=== PATIENT | male | born 1945 | race African-American/Black ===

== ENCOUNTER 2016-08-14 17:00 | Emergency (ER) | payer MEDICARE, MEDICAID ==
[~2016-08-14] VITALS: Ht 182.9 cm; Wt 90.0 kg
[~2016-08-14 17:00] MED LIST: METF500T4 PO; NIAC500T2 PO; RIVA20TA PO
[2016-08-14] MEDS ORDERED: SODIUM CHLORIDE 0.9% 500 ML IV ONE (17:20)
[2016-08-14] MEDS ORDERED: ONDANSETRON HCL 4MG/2ML VIAL IV ONE (17:30)
[2016-08-14 18:11] LABS: HEMATOCRIT 47.2 % (42.0-52.0); HEMOGLOBIN 15.8 g/dL (14.0-18.0); MEAN CORPUSCULAR HEMOGLOBIN 28.7 pg (28.0-32.0); MEAN CORPUSCULAR HGB CONC 33.5 g/dL (31.0-37.0); MEAN CORPUSCULAR VOLUME 85.8 fL (80.0-94.0); PLATELET 248 x1000/uL (130-400); RED CELL DISTRIBUTION WIDTH 16.1 % (11.6-14.6); WHITE BLOOD COUNT 8.5 x1000/uL (4.5-11.0)
[2016-08-14 18:24] LABS: TROPONIN I 0.03 ng/mL (0.00-0.04)
[2016-08-14 20:30] VITALS: BP 110/65
[2016-08-14] MEDS ORDERED: ONDANSETRON 4MG ODT PO ONE (21:30)
== END 2016-08-14 21:40 | disposition home or self-care (01) ==
LOC: ER 17:02
DX: E86.0 Dehydration (principal); I11.0 Hypertensive heart disease with heart failure; I50.9 Heart failure, unspecified; J44.9 Chronic obstructive pulmonary disease, unspecified; E11.9 Type 2 diabetes mellitus without complications; Z87.891 Personal history of nicotine dependence; Z79.899 Other long term (current) drug therapy; E86.1 Hypovolemia
CPT/HCPCS: 36415; 80048; 84484; 85027; 96361; 96374; 99285; J2405; J7030; Q0162

== ENCOUNTER 2018-07-05 13:31 | Inpatient (IN) | payer MEDICARE, MEDICAID ==
[~2018-07-05] VITALS: Ht 183.1 cm; Wt 88.0 kg
[2018-07-05 08:00] VITALS: BP 137/80
[~2018-07-05 13:31] MED LIST changes: +DILT240C92 PO; +HYDR12.529 PO; +METF-414 PO; -METF500T4 PO
[2018-07-05] MEDS ORDERED: IPRATROPIUM/ALBUTEROL 0.5-3(2.5)MG/3ML NEB HHN PRN (14:45)
[2018-07-05] MEDS ORDERED: DEXTROSE 50% WATER 50ML SYRINGE IV PRN (14:45)
[2018-07-05] MEDS ORDERED: TAMSULOSIN HCL 0.4MG SR CAPSULE PO SCH (15:15)
[2018-07-05 15:30] VITALS: BP 137/80
[2018-07-05 15:56] VITALS: BP 137/80
[2018-07-05] MEDS ORDERED: METHYLPREDNISOLONE SOD SUCC 125 MG/2 ML VIAL IV NR (17:00)
[2018-07-05] MEDS: IPRATROPIUM/ALBUTEROL 0.5-3(2.5)MG/3ML NEB HHN SCH ×2 (17:00→20:02)
[2018-07-05] MEDS: DILTIAZEM HCL 180MG CAPSULE CD 24HR PO SCH (17:17)
[2018-07-05] MEDS: TAMSULOSIN HCL 0.4MG SR CAPSULE PO SCH (17:18)
[2018-07-05] MEDS: RIVAROXABAN 20 MG TABLET PO SCH (17:18)
[2018-07-05] MEDS: INSULIN LISPRO 100 UNITS/ML SUBCUT SCH ×2 (17:25→21:08)
[2018-07-05] MEDS: BLOOD SUGAR DIAGNOSTIC STRIP TEST SCH ×2 (17:25→21:09)
[2018-07-05 17:35] LABS: BASOPHILS % 0.5 % (0.0-2.0); EOSINOPHILS % 2.1 % (0.0-5.0); HEMATOCRIT. 40.3 % (42.0-52.0); HEMOGLOBIN. 13.4 g/dL (14.0-18.0); LYMPHOCYTES % 13.7 % (20.0-50.0); MEAN CORPUSCULAR HEMOGLOBIN 29.5 pg (28.0-32.0); MEAN CORPUSCULAR VOLUME 88.6 fL (80.0-94.0); MEAN PLATELET VOLUME 9.1 fl (7.4-10.4); MONOCYTES % 10.5 % (2.0-8.0); NEUTROPHILS % 73.2 % (40.0-76.0); PLATELET 196 x1000/uL (130-400); RED BLOOD CELL COUNT 4.56 mill/uL (4.7-6.1); RED CELL DISTRIBUTION WIDTH 14.6 % (11.6-14.6)
[2018-07-05 17:48] LABS: CHLORIDE 108 mEq/L (98-107)
[2018-07-05 17:59] LABS: CREATINE KINASE 119 IU/L (39-308)
[2018-07-05] MEDS ORDERED: DILTIAZEM HCL 60MG TABLET PO SCH (18:00)
[2018-07-05 18:03] LABS: CREATINE KINASE MB FRACTION 4.2 ng/mL (0.5-3.6)
[2018-07-05 18:42] LABS: BG BASE EXCESS 1.2 mmol/L (-2.0-2.0); BG CARBOXYHEMOGLOBIN 0.3 % (0.5-1.5); BG DEOXYHEMOGLOBIN 1.8 % (0.0-5.0); BG FRACTION INSPIRED OXYGEN 28; BG HCO3 ACT 25.3 mmol/L (22.0-26.0); BG METHEMOGLOBIN 0.1 % (0.0-1.5); BG OXYGEN SATURATION 98.2 % (92.0-98.5); BG OXYHEMOGLOBIN 97.8 % (94.0-97.0); BG PCO2 38.4 mmHg (35.0-45.0); BG PH 7.437 (7.350-7.450); BG PO2 112.4 mmHg (75.0-100.0); BG SAMPLE SITE LEFT RADIAL; BG TOTAL HEMOGLOBIN 13.7 g/dL (12.0-18.0); BG VENT MODE NASAL CANNULA
[2018-07-05] MEDS ORDERED: TAMS-11 PO (18:48)
[2018-07-05] MEDS ORDERED: ZOLP10TA2 MT (18:48)
[2018-07-05] MEDS ORDERED: ACETAMINOPHEN 325MG TABLET PO PRN (19:00)
[2018-07-05] MEDS ORDERED: MAGNESIUM/ALUMINUM HYDROXIDE/SIMETHICONE 30ML UDC PO PRN (19:00)
[2018-07-05] MEDS ORDERED: ONDANSETRON HCL 4MG/2ML INJ IV PRN (19:00)
[2018-07-05] MEDS ORDERED: DOCUSATE SODIUM 100MG CAPSULE PO PRN (19:00)
[2018-07-05] MEDS ORDERED: HYDROCODONE/ACETAMINOPHEN 5/325MG TABLET PO PRN (19:00)
[2018-07-05] MEDS ORDERED: CLONIDINE 0.1MG TABLET PO PRN (19:00)
[2018-07-05 20:00] VITALS: BP 137/90
[2018-07-05] MEDS: ZOLPIDEM TARTRATE 5MG TABLET PO PRN (21:09)
[2018-07-05] MEDS: METHYLPREDNISOLONE SOD SUCC 125 MG/2 ML VIAL IV SCH (21:13)
[2018-07-05] MEDS: GUAIFENESIN 200MG/10ML SUGAR FREE UDC PO PRN (23:59)
[2018-07-06] VITALS: BP 139/70
[2018-07-06] MEDS: IPRATROPIUM/ALBUTEROL 0.5-3(2.5)MG/3ML NEB HHN SCH ×6 (00:21→20:05)
[2018-07-06 04:06] VITALS: BP 119/77
[2018-07-06 06:18] LABS: HEMATOCRIT. 39.3 % (42.0-52.0); HEMOGLOBIN. 13.3 g/dL (14.0-18.0); MEAN CORPUSCULAR HEMOGLOBIN 29.6 pg (28.0-32.0); MEAN CORPUSCULAR VOLUME 87.2 fL (80.0-94.0); MEAN PLATELET VOLUME 9.8 fl (7.4-10.4); PLATELET 204 x1000/uL (130-400); RED CELL DISTRIBUTION WIDTH 14.6 % (11.6-14.6)
[2018-07-06 06:23] LABS: CHLORIDE 106 mEq/L (98-107)
[2018-07-06 06:34] LABS: CREATINE KINASE 89 IU/L (39-308)
[2018-07-06 06:38] LABS: CREATINE KINASE MB FRACTION 3.6 ng/mL (0.5-3.6)
[2018-07-06 06:39] LABS: HDL CHOLESTEROL 64 mg/dL (40-59); LDL CHOLESTEROL 54 mg/dL (5-100)
[2018-07-06] MEDS: METHYLPREDNISOLONE SOD SUCC 125 MG/2 ML VIAL IV SCH ×3 (06:45→22:46)
[2018-07-06] MEDS: INSULIN LISPRO 100 UNITS/ML SUBCUT SCH ×4 (06:46→20:39)
[2018-07-06] MEDS: BLOOD SUGAR DIAGNOSTIC STRIP TEST SCH ×4 (06:47→20:26)
[2018-07-06 08:19] VITALS: BP 132/88
[2018-07-06] MEDS: DILTIAZEM HCL 180MG CAPSULE CD 24HR PO SCH (08:21)
[2018-07-06] MEDS: TAMSULOSIN HCL 0.4MG SR CAPSULE PO SCH (08:22)
[2018-07-06 11:18] LABS: PLATELET ESTIMATE NORMAL
[2018-07-06] MEDS: FLUTICASONE/VILANTEROL 200-25 BLST.W.DEV ORI SCH ×2 (11:34→20:06)
[2018-07-06 12:23] LABS: T4 FREE 1.39 ng/dL (0.76-1.46)
[2018-07-06 16:30] VITALS: BP 112/58
[2018-07-06] MEDS: RIVAROXABAN 20 MG TABLET PO SCH (16:47)
[2018-07-06] MEDS ORDERED: DILT180C3 MT (17:04)
[2018-07-06] MEDS ORDERED: HYDR25TA MT (17:05)
[2018-07-06] MEDS ORDERED: ALBU18HF2 IH (17:07)
[2018-07-06] MEDS ORDERED: PRAV20TA57 MT (17:07)
[2018-07-06] MEDS ORDERED: TIOT4MIS3 IH (17:08)
[2018-07-06 20:00] VITALS: BP 121/62
[2018-07-06] MEDS: ZOLPIDEM TARTRATE 5MG TABLET PO PRN (20:38)
[2018-07-06] MEDS: MAGNESIUM OXIDE 400MG TABLET PO SCH (20:38)
[2018-07-06 23:52] VITALS: BP 114/68
[2018-07-07] MEDS: IPRATROPIUM/ALBUTEROL 0.5-3(2.5)MG/3ML NEB HHN SCH ×6 (00:03→21:04)
[2018-07-07 04:00] VITALS: BP 129/73
[2018-07-07] MEDS: BLOOD SUGAR DIAGNOSTIC STRIP TEST SCH ×4 (06:39→20:27)
[2018-07-07] MEDS: METHYLPREDNISOLONE SOD SUCC 125 MG/2 ML VIAL IV SCH (06:39)
[2018-07-07 07:39] LABS: CHLORIDE 102 mEq/L (98-107)
[2018-07-07 08:00] VITALS: BP 122/68
[2018-07-07] MEDS: DILTIAZEM HCL 180MG CAPSULE CD 24HR PO SCH (08:53)
[2018-07-07] MEDS: INSULIN LISPRO 100 UNITS/ML SUBCUT SCH ×4 (08:56→20:32)
[2018-07-07] MEDS: FLUTICASONE/VILANTEROL 200-25 BLST.W.DEV ORI SCH (09:00)
[2018-07-07] MEDS: TAMSULOSIN HCL 0.4MG SR CAPSULE PO SCH (09:00)
[2018-07-07] MEDS ORDERED: DEXTROSE 50% WATER 50ML SYRINGE IV PRN (09:15)
[2018-07-07] MEDS ORDERED: POLYETHYLENE GLYCOL 3350 (17GM) 1 DOSE PACK PO PRN (09:30)
[2018-07-07 11:55] LABS: HEMOGLOBIN. 13.3 g/dL (14.0-18.0); MEAN CORPUSCULAR HEMOGLOBIN 29.1 pg (28.0-32.0); MEAN CORPUSCULAR VOLUME 89.9 fL (80.0-94.0); MEAN PLATELET VOLUME 9.6 fl (7.4-10.4); PLATELET 224 x1000/uL (130-400); RED BLOOD CELL COUNT 4.56 mill/uL (4.7-6.1)
[2018-07-07] MEDS ORDERED: BLOOD SUGAR DIAGNOSTIC STRIP TEST SCH (12:20)
[2018-07-07 12:30] LABS: PLATELET ESTIMATE NORMAL
[2018-07-07] MEDS: RIVAROXABAN 20 MG TABLET PO SCH (17:50)
[2018-07-07 19:52] VITALS: BP 116/76
[2018-07-07] MEDS: MAGNESIUM OXIDE 400MG TABLET PO SCH (20:31)
[2018-07-07] MEDS: METHYLPREDNISOLONE SOD SUCC 40 MG/ML VIAL IV SCH (20:31)
[2018-07-07] MEDS: ZOLPIDEM TARTRATE 5MG TABLET PO PRN (22:02)
[2018-07-08 00:10] VITALS: BP 124/87
[2018-07-08] MEDS: IPRATROPIUM/ALBUTEROL 0.5-3(2.5)MG/3ML NEB HHN SCH ×5 (00:33→15:47)
[2018-07-08 03:51] VITALS: BP 111/81
[2018-07-08] MEDS: BLOOD SUGAR DIAGNOSTIC STRIP TEST SCH ×2 (06:20→11:58)
[2018-07-08 07:03] LABS: HEMATOCRIT. 40.1 % (42.0-52.0); HEMOGLOBIN. 12.9 g/dL (14.0-18.0); MEAN CORPUSCULAR HEMOGLOBIN 28.9 pg (28.0-32.0); MEAN CORPUSCULAR VOLUME 90.1 fL (80.0-94.0); MEAN PLATELET VOLUME 10.1 fl (7.4-10.4); PLATELET 161 x1000/uL (130-400); RED BLOOD CELL COUNT 4.45 mill/uL (4.7-6.1); RED CELL DISTRIBUTION WIDTH 15.3 % (11.6-14.6)
[2018-07-08 07:43] LABS: CHLORIDE 107 mEq/L (98-107)
[2018-07-08 08:00] VITALS: BP 141/86
[2018-07-08] MEDS: GUAIFENESIN 200MG/10ML SUGAR FREE UDC PO PRN (08:54)
[2018-07-08] MEDS: METHYLPREDNISOLONE SOD SUCC 40 MG/ML VIAL IV SCH (08:54)
[2018-07-08] MEDS: DILTIAZEM HCL 180MG CAPSULE CD 24HR PO SCH (08:55)
[2018-07-08] MEDS: TAMSULOSIN HCL 0.4MG SR CAPSULE PO SCH (08:55)
[2018-07-08] MEDS: FLUTICASONE/VILANTEROL 200-25 BLST.W.DEV ORI SCH (08:56)
[2018-07-08] MEDS: INSULIN LISPRO 100 UNITS/ML SUBCUT SCH ×2 (08:57→12:01)
[2018-07-08 10:28] LABS: PLATELET ESTIMATE NORMAL
[2018-07-08 11:57] VITALS: BP 131/88
[2018-07-08 14:01] VITALS: BP 131/88
[2018-07-08 16:00] VITALS: BP 124/77
== END 2018-07-08 17:00 | disposition home health service (06) | DRG 191 ==
LOC: 6WST 13:31
PROVIDERS: ADMIT Hospitalist; ATTEND Hospitalist
DX: J44.1 Chronic obstructive pulmonary disease with (acute) exacerbation (principal); N17.9 Acute kidney failure, unspecified; D68.59 Other primary thrombophilia; I42.0 Dilated cardiomyopathy; E11.51 Type 2 diabetes mellitus with diabetic peripheral angiopathy without gangrene; E78.00 Pure hypercholesterolemia, unspecified; G47.00 Insomnia, unspecified; G51.0 Bell's palsy; I10 Essential (primary) hypertension; N40.0 Benign prostatic hyperplasia without lower urinary tract symptoms; R79.89 Other specified abnormal findings of blood chemistry; I25.10 Atherosclerotic heart disease of native coronary artery without angina pectoris; I48.2 Chronic atrial fibrillation; I49.3 Ventricular premature depolarization; E78.5 Hyperlipidemia, unspecified; H54.3 Unqualified visual loss, both eyes; R09.02 Hypoxemia; T38.0X5A Adverse effect of glucocorticoids and synthetic analogues, initial encounter; Y92.89 Other specified places as the place of occurrence of the external cause; Z99.81 Dependence on supplemental oxygen; Z87.891 Personal history of nicotine dependence; Z85.46 Personal history of malignant neoplasm of prostate; Z79.01 Long term (current) use of anticoagulants
CPT/HCPCS: 36415; 36600; 71045; 80048; 80061; 82375; 82550; 82553; 82805; 82962; 83735; 83880; 84439; 84443; 84481; 84484; 85379; 93005; 93970; 94640; C1893; J1815; J2920; J2930; J7620

== ENCOUNTER 2018-10-02 09:47 | Inpatient (IN) | payer MEDICARE, MEDICAID ==
[~2018-10-02] VITALS: Ht 185.4 cm; Wt 83.9 kg
[~2018-10-02 09:47] MED LIST changes: +ALBU18HF2 IH; +DILT180C3 MT; -DILT240C92 PO; -HYDR12.529 PO; +HYDR25TA MT; -NIAC500T2 PO; +PRAV20TA57 MT; +TAMS-11 PO; +TIOT4MIS3 IH; +ZOLP10TA2 MT
[2018-10-02] MEDS ORDERED: METHYLPREDNISOLONE SOD SUCC 125 MG/2 ML VIAL IV STA (10:02)
[2018-10-02] MEDS ORDERED: ALBUTEROL (0.083%) 2.5MG/3ML NEB HHN STA (10:02)
[2018-10-02] MEDS ORDERED: IPRATROPIUM BROMIDE (0.02%) 0.5MG/2.5ML NEB HHN STA (10:02)
[2018-10-02 10:41] LABS: BASOPHILS % 0.2 % (0.0-2.0); EOSINOPHILS % 0.1 % (0.0-5.0); HEMATOCRIT. 45.1 % (42.0-52.0); HEMOGLOBIN. 14.9 g/dL (14.0-18.0); LYMPHOCYTES % 8.5 % (20.0-50.0); MEAN CORPUSCULAR HEMOGLOBIN 30.1 pg (28.0-32.0); MEAN PLATELET VOLUME 9.1 fl (7.4-10.4); MONOCYTES % 11.1 % (2.0-8.0); NEUTROPHILS % 80.1 % (40.0-76.0); PLATELET 165 x1000/uL (130-400); RED BLOOD CELL COUNT 4.96 mill/uL (4.7-6.1)
[2018-10-02 10:45] LABS: CHLORIDE 100 mEq/L (98-107)
[2018-10-02] MEDS ORDERED: LEVOFLOXACIN 750MG PREMIX 150 ML IV ONE (12:45)
[2018-10-02 13:48] LABS: BG BASE EXCESS -1.7 mmol/L (-2.0-2.0); BG BILEVEL POS AIRWAY PRESSURE 15/5; BG CARBOXYHEMOGLOBIN 0.3 % (0.5-1.5); BG DEOXYHEMOGLOBIN 0.1 % (0.0-5.0); BG FRACTION INSPIRED OXYGEN 100; BG HCO3 ACT 22.8 mmol/L (22.0-26.0); BG METHEMOGLOBIN 0.2 % (0.0-1.5); BG OXYGEN SATURATION 99.9 % (92.0-98.5); BG OXYHEMOGLOBIN 99.4 % (94.0-97.0); BG PCO2 37.9 mmHg (35.0-45.0); BG PH 7.397 (7.350-7.450); BG PO2 > 602.7 mmHg (75.0-100.0); BG SAMPLE SITE RIGHT BRACHIAL; BG TOTAL HEMOGLOBIN 14.6 g/dL (12.0-18.0); BG VENT MODE MASK - BIPAP
[2018-10-02] MEDS ORDERED: MAGNESIUM/ALUMINUM HYDROXIDE/SIMETHICONE 30ML UDC PO PRN (14:15)
[2018-10-02] MEDS ORDERED: ACETAMINOPHEN 325MG TABLET PO PRN (14:15)
[2018-10-02] MEDS ORDERED: TRAMADOL 50MG TABLET PO PRN (14:15)
[2018-10-02] MEDS ORDERED: DEXTROSE 50% WATER 50ML SYRINGE IV PRN (14:15)
[2018-10-02] MEDS ORDERED: CLONIDINE 0.1MG TABLET PO PRN (14:15)
[2018-10-02] MEDS ORDERED: LORAZEPAM 0.5MG TABLET PO PRN (14:15)
[2018-10-02] MEDS ORDERED: NITROGLYCERIN 0.4MG TABLET SL SL PRN (14:15)
[2018-10-02] MEDS ORDERED: GUAIFENESIN 200MG/10ML SUGAR FREE UDC PO PRN (14:15)
[2018-10-02] MEDS ORDERED: IPRATROPIUM/ALBUTEROL 0.5-3(2.5)MG/3ML NEB INH PRN (14:15)
[2018-10-02] MEDS ORDERED: ZOLPIDEM TARTRATE 5MG TABLET PO PRN (14:15)
[2018-10-02] MEDS ORDERED: ENOXAPARIN 40MG/0.4ML SYR SUBCUT SCH (14:15)
[2018-10-02] MEDS ORDERED: ONDANSETRON HCL 4MG/2ML INJ IV PRN (14:15)
[2018-10-02 15:46] VITALS: BP 118/69
[2018-10-02] MEDS ORDERED: RIVAROXABAN 10 MG TABLET PO SCH (17:00)
[2018-10-02] MEDS ORDERED: POTASSIUM CHLORIDE 20MEQ TABLET SR PO NR (17:00)
[2018-10-02] MEDS ORDERED: POTASSIUM CHLORIDE 20MEQ TABLET SR PO ONE (17:15)
[2018-10-02] MEDS: BLOOD SUGAR DIAGNOSTIC STRIP TEST SCH ×2 (17:30→21:15)
[2018-10-02] MEDS: FUROSEMIDE 40MG/4ML VIAL IVP SCH (17:51)
[2018-10-02] MEDS: RIVAROXABAN 20 MG TABLET PO SCH (17:52)
[2018-10-02] MEDS: INSULIN LISPRO 100 UNITS/ML SUBCUT SCH ×2 (17:52→22:50)
[2018-10-02] MEDS: DILTIAZEM HCL 60MG TABLET NG SCH (17:52)
[2018-10-02] MEDS: IPRATROPIUM/ALBUTEROL 0.5-3(2.5)MG/3ML NEB HHN SCH ×2 (17:59→20:38)
[2018-10-02 18:00] VITALS: BP 128/79
[2018-10-02] MEDS ORDERED: LEVOFLOXACIN 500MG PREMIX 100 ML IV SCH (18:00)
[2018-10-02 20:00] VITALS: BP 86/33
[2018-10-02 21:00] VITALS: BP 122/75
[2018-10-02] MEDS: FAMOTIDINE 20MG TABLET PO SCH (21:15)
[2018-10-02] MEDS: ASCORBIC ACID 500 MG TABLET PO SCH (21:17)
[2018-10-02] MEDS: METHYLPREDNISOLONE SOD SUCC 125 MG/2 ML VIAL IV SCH (21:17)
[2018-10-02] MEDS: TAMSULOSIN HCL 0.4MG SR CAPSULE PO SCH (21:19)
[2018-10-02 22:00] VITALS: BP 141/86
[2018-10-02 23:00] VITALS: BP 142/87
[2018-10-02 23:47] LABS: CREATINE KINASE MB FRACTION 9.1 ng/mL (0.5-3.6)
[2018-10-03] VITALS (13 sets, daily range): BP systolic 106–144; BP diastolic 45–89
[2018-10-03] MEDS: IPRATROPIUM/ALBUTEROL 0.5-3(2.5)MG/3ML NEB HHN SCH ×6 (00:15→20:50)
[2018-10-03] MEDS: DILTIAZEM HCL 60MG TABLET NG SCH ×5 (00:22→23:58)
[2018-10-03 05:45] LABS: HEMOGLOBIN. 13.4 g/dL (14.0-18.0); MEAN CORPUSCULAR HEMOGLOBIN 30.5 pg (28.0-32.0); MEAN CORPUSCULAR VOLUME 90.9 fL (80.0-94.0); MEAN PLATELET VOLUME 9.2 fl (7.4-10.4); PLATELET 161 x1000/uL (130-400); RED CELL DISTRIBUTION WIDTH 16.9 % (11.6-14.6)
[2018-10-03] MEDS: METHYLPREDNISOLONE SOD SUCC 125 MG/2 ML VIAL IV SCH (06:31)
[2018-10-03 06:38] LABS: CREATINE KINASE MB FRACTION 8.3 ng/mL (0.5-3.6)
[2018-10-03] MEDS: FUROSEMIDE 40MG/4ML VIAL IVP SCH ×2 (07:27→17:47)
[2018-10-03 07:58] LABS: BG BASE EXCESS 1.4 mmol/L (-2.0-2.0); BG CARBOXYHEMOGLOBIN 0.9 % (0.5-1.5); BG DEOXYHEMOGLOBIN 1.4 % (0.0-5.0); BG HCO3 ACT 25.4 mmol/L (22.0-26.0); BG METHEMOGLOBIN 0.1 % (0.0-1.5); BG OXYGEN SATURATION 98.6 % (92.0-98.5); BG OXYHEMOGLOBIN 97.6 % (94.0-97.0); BG PCO2 38.5 mmHg (35.0-45.0); BG PH 7.438 (7.350-7.450); BG PO2 131.4 mmHg (75.0-100.0); BG SAMPLE SITE RIGHT BRACHIAL; BG TOTAL HEMOGLOBIN 14.1 g/dL (12.0-18.0); BG VENT MODE NASAL CANNULA
[2018-10-03] MEDS: BLOOD SUGAR DIAGNOSTIC STRIP TEST SCH ×4 (08:09→21:00)
[2018-10-03] MEDS ORDERED: ASPIRIN 325MG EC TABLET PO SCH (09:00)
[2018-10-03] MEDS: ASCORBIC ACID 500 MG TABLET PO SCH (09:24)
[2018-10-03] MEDS: POTASSIUM CHLORIDE 20MEQ TABLET SR PO SCH ×2 (09:24→17:48)
[2018-10-03] MEDS: FAMOTIDINE 20MG TABLET PO SCH (09:25)
[2018-10-03] MEDS: ZINC SULFATE 220 MG ( 50 ) CAPSULE PO SCH (09:25)
[2018-10-03] MEDS: TAMSULOSIN HCL 0.4MG SR CAPSULE PO SCH ×2 (09:25→23:59)
[2018-10-03] MEDS: INSULIN LISPRO 100 UNITS/ML SUBCUT SCH ×3 (09:26→17:50)
[2018-10-03] MEDS: METHYLPREDNISOLONE SOD SUCC 40 MG/ML VIAL IV SCH ×2 (13:34→23:58)
[2018-10-03] MEDS ORDERED: LEVOFLOXACIN 500MG PREMIX 100 ML IV SCH (14:00)
[2018-10-03 16:28] LABS: PLATELET ESTIMATE NORMAL
[2018-10-03] MEDS: RIVAROXABAN 20 MG TABLET PO SCH (17:48)
[2018-10-04] VITALS (10 sets, daily range): BP systolic 107–142; BP diastolic 57–81
[2018-10-04] MEDS: ASCORBIC ACID 500 MG TABLET PO SCH ×3 (00:04→22:30)
[2018-10-04] MEDS: INSULIN LISPRO 100 UNITS/ML SUBCUT SCH ×5 (00:08→22:36)
[2018-10-04] MEDS: IPRATROPIUM/ALBUTEROL 0.5-3(2.5)MG/3ML NEB HHN SCH ×6 (00:44→20:37)
[2018-10-04] MEDS: FUROSEMIDE 40MG/4ML VIAL IVP SCH ×2 (06:44→17:15)
[2018-10-04] MEDS: METHYLPREDNISOLONE SOD SUCC 40 MG/ML VIAL IV SCH (06:45)
[2018-10-04] MEDS: DILTIAZEM HCL 60MG TABLET NG SCH ×3 (06:46→17:58)
[2018-10-04] MEDS: BLOOD SUGAR DIAGNOSTIC STRIP TEST SCH ×4 (08:00→21:00)
[2018-10-04] MEDS: POTASSIUM CHLORIDE 20MEQ TABLET SR PO SCH ×2 (09:15→17:15)
[2018-10-04] MEDS: FAMOTIDINE 20MG TABLET PO SCH (09:16)
[2018-10-04] MEDS: ZINC SULFATE 220 MG ( 50 ) CAPSULE PO SCH (09:16)
[2018-10-04] MEDS: TAMSULOSIN HCL 0.4MG SR CAPSULE PO SCH ×2 (09:16→22:30)
[2018-10-04] MEDS: PREDNISONE 10MG TABLET PO SCH ×2 (09:25→17:15)
[2018-10-04] MEDS: TIOTROPIUM ORI SCH (11:19)
[2018-10-04] MEDS: OLODATEROL ORI SCH (11:19)
[2018-10-04] MEDS: RIVAROXABAN 20 MG TABLET PO SCH (17:17)
[2018-10-05] VITALS (12 sets, daily range): BP systolic 106–150; BP diastolic 65–111
[2018-10-05] MEDS: IPRATROPIUM/ALBUTEROL 0.5-3(2.5)MG/3ML NEB HHN SCH ×6 (00:57→20:27)
[2018-10-05] MEDS: DILTIAZEM HCL 90MG TABLET NG SCH ×5 (06:00→23:07)
[2018-10-05 06:19] LABS: HEMATOCRIT. 42.1 % (42.0-52.0); HEMOGLOBIN. 13.8 g/dL (14.0-18.0); MEAN CORPUSCULAR HEMOGLOBIN 29.6 pg (28.0-32.0); MEAN CORPUSCULAR VOLUME 90.5 fL (80.0-94.0); MEAN PLATELET VOLUME 9.4 fl (7.4-10.4); PLATELET 191 x1000/uL (130-400); RED BLOOD CELL COUNT 4.65 mill/uL (4.7-6.1)
[2018-10-05] MEDS: FUROSEMIDE 40MG/4ML VIAL IVP SCH ×2 (06:56→17:47)
[2018-10-05 06:57] LABS: CHLORIDE 101 mEq/L (98-107)
[2018-10-05] MEDS: BLOOD SUGAR DIAGNOSTIC STRIP TEST SCH ×4 (08:05→20:53)
[2018-10-05] MEDS: ASCORBIC ACID 500 MG TABLET PO SCH ×2 (08:27→20:59)
[2018-10-05] MEDS: PREDNISONE 10MG TABLET PO SCH ×2 (08:27→17:54)
[2018-10-05] MEDS: TAMSULOSIN HCL 0.4MG SR CAPSULE PO SCH ×2 (08:27→20:59)
[2018-10-05] MEDS: FAMOTIDINE 20MG TABLET PO SCH (08:27)
[2018-10-05] MEDS: ZINC SULFATE 220 MG ( 50 ) CAPSULE PO SCH (08:27)
[2018-10-05] MEDS: POTASSIUM CHLORIDE 20MEQ TABLET SR PO SCH ×2 (08:27→17:46)
[2018-10-05] MEDS: OLODATEROL ORI SCH (08:28)
[2018-10-05] MEDS: TIOTROPIUM ORI SCH (08:28)
[2018-10-05] MEDS: INSULIN LISPRO 100 UNITS/ML SUBCUT SCH ×4 (08:29→21:06)
[2018-10-05] MEDS: DOCUSATE SODIUM 100MG CAPSULE PO PRN (12:44)
[2018-10-05 16:09] LABS: PLATELET ESTIMATE NORMAL
[2018-10-05] MEDS: RIVAROXABAN 20 MG TABLET PO SCH (17:46)
[2018-10-06] VITALS (12 sets, daily range): BP systolic 122–151; BP diastolic 55–91
[2018-10-06] MEDS: IPRATROPIUM/ALBUTEROL 0.5-3(2.5)MG/3ML NEB HHN SCH ×6 (00:29→21:20)
[2018-10-06] MEDS: DILTIAZEM HCL 90MG TABLET NG SCH ×3 (06:05→17:18)
[2018-10-06] MEDS: FUROSEMIDE 40MG/4ML VIAL IVP SCH ×2 (06:33→16:50)
[2018-10-06] MEDS: TIOTROPIUM ORI SCH (08:16)
[2018-10-06] MEDS: BLOOD SUGAR DIAGNOSTIC STRIP TEST SCH ×4 (08:16→21:09)
[2018-10-06] MEDS: OLODATEROL ORI SCH (08:16)
[2018-10-06] MEDS: FAMOTIDINE 20MG TABLET PO SCH (08:17)
[2018-10-06] MEDS: PREDNISONE 10MG TABLET PO SCH (08:17)
[2018-10-06] MEDS: INSULIN LISPRO 100 UNITS/ML SUBCUT SCH ×4 (08:18→21:14)
[2018-10-06] MEDS: TAMSULOSIN HCL 0.4MG SR CAPSULE PO SCH ×2 (08:19→21:00)
[2018-10-06] MEDS: ZINC SULFATE 220 MG ( 50 ) CAPSULE PO SCH (08:20)
[2018-10-06] MEDS: POTASSIUM CHLORIDE 20MEQ TABLET SR PO SCH ×2 (08:20→16:50)
[2018-10-06] MEDS: ASCORBIC ACID 500 MG TABLET PO SCH ×2 (08:20→21:00)
[2018-10-06] MEDS ORDERED: PREDNISONE 10MG TABLET PO NR (08:46)
[2018-10-06 09:54] LABS: BG BASE EXCESS -1.6 mmol/L (-2.0-2.0); BG CARBOXYHEMOGLOBIN 0.5 % (0.5-1.5); BG DEOXYHEMOGLOBIN 5.6 % (0.0-5.0); BG FRACTION INSPIRED OXYGEN 21; BG HCO3 ACT 22.3 mmol/L (22.0-26.0); BG METHEMOGLOBIN 0.1 % (0.0-1.5); BG OXYGEN SATURATION 94.4 % (92.0-98.5); BG OXYHEMOGLOBIN 93.8 % (94.0-97.0); BG PCO2 35.1 mmHg (35.0-45.0); BG PO2 76.9 mmHg (75.0-100.0); BG SAMPLE SITE RIGHT BRACHIAL; BG VENT MODE ROOM AIR
[2018-10-06] MEDS ORDERED: MAGNESIUM CITRATE 300ML SOLUTION PO NR (16:00)
[2018-10-06] MEDS: RIVAROXABAN 20 MG TABLET PO SCH (16:50)
[2018-10-07] VITALS (15 sets, daily range): BP systolic 122–176; BP diastolic 65–109
[2018-10-07] MEDS: DILTIAZEM HCL 90MG TABLET NG SCH ×4 (00:47→17:18)
[2018-10-07] MEDS: IPRATROPIUM/ALBUTEROL 0.5-3(2.5)MG/3ML NEB HHN SCH ×6 (00:53→20:10)
[2018-10-07] MEDS: FUROSEMIDE 20MG/2ML VIAL IVP SCH ×2 (06:35→17:19)
[2018-10-07] MEDS: BLOOD SUGAR DIAGNOSTIC STRIP TEST SCH ×4 (07:52→21:00)
[2018-10-07] MEDS: INSULIN LISPRO 100 UNITS/ML SUBCUT SCH ×3 (08:17→18:19)
[2018-10-07] MEDS: ASCORBIC ACID 500 MG TABLET PO SCH ×2 (08:25→21:06)
[2018-10-07] MEDS: ZINC SULFATE 220 MG ( 50 ) CAPSULE PO SCH (08:25)
[2018-10-07] MEDS: FAMOTIDINE 20MG TABLET PO SCH (08:25)
[2018-10-07] MEDS: TAMSULOSIN HCL 0.4MG SR CAPSULE PO SCH ×2 (08:26→21:06)
[2018-10-07] MEDS: POTASSIUM CHLORIDE 20MEQ TABLET SR PO SCH ×2 (08:26→17:18)
[2018-10-07] MEDS: TIOTROPIUM ORI SCH (08:27)
[2018-10-07] MEDS: OLODATEROL ORI SCH (08:27)
[2018-10-07] MEDS ORDERED: PREDNISONE 20MG TABLET PO SCH (09:00)
[2018-10-07 09:06] LABS: HEMATOCRIT. 44.1 % (42.0-52.0); HEMOGLOBIN. 14.6 g/dL (14.0-18.0); MEAN CORPUSCULAR HEMOGLOBIN 29.9 pg (28.0-32.0); MEAN CORPUSCULAR VOLUME 90.6 fL (80.0-94.0); MEAN PLATELET VOLUME 9.3 fl (7.4-10.4); PLATELET 203 x1000/uL (130-400); RED BLOOD CELL COUNT 4.87 mill/uL (4.7-6.1)
[2018-10-07 09:16] LABS: CHLORIDE 98 mEq/L (98-107)
[2018-10-07 10:01] LABS: PLATELET ESTIMATE NORMAL
[2018-10-07] MEDS: THEOPHYLLINE ANHYDROUS 80 MG/15 ML 120ML PO SCH ×2 (13:45→17:19)
[2018-10-07] MEDS: DOCUSATE SODIUM 100MG CAPSULE PO PRN (17:17)
[2018-10-07] MEDS: RIVAROXABAN 20 MG TABLET PO SCH (17:18)
[2018-10-07] MEDS: PREDNISONE 20MG TABLET PO SCH (17:20)
[2018-10-08] VITALS (13 sets, daily range): BP systolic 121–154; BP diastolic 45–93
[2018-10-08] MEDS: IPRATROPIUM/ALBUTEROL 0.5-3(2.5)MG/3ML NEB HHN SCH ×2 (00:32→04:09)
[2018-10-08] MEDS: THEOPHYLLINE ANHYDROUS 80 MG/15 ML 120ML PO SCH ×3 (00:47→12:18)
[2018-10-08] MEDS: DILTIAZEM HCL 90MG TABLET NG SCH ×3 (00:47→12:18)
[2018-10-08] MEDS: INSULIN LISPRO 100 UNITS/ML SUBCUT SCH ×3 (01:01→12:20)
[2018-10-08] MEDS: FUROSEMIDE 20MG/2ML VIAL IVP SCH (06:33)
[2018-10-08] MEDS: POTASSIUM CHLORIDE 20MEQ TABLET SR PO SCH (08:26)
[2018-10-08] MEDS: FAMOTIDINE 20MG TABLET PO SCH (08:26)
[2018-10-08] MEDS: ZINC SULFATE 220 MG ( 50 ) CAPSULE PO SCH (08:26)
[2018-10-08] MEDS: ASCORBIC ACID 500 MG TABLET PO SCH (08:26)
[2018-10-08] MEDS: TAMSULOSIN HCL 0.4MG SR CAPSULE PO SCH (08:26)
[2018-10-08] MEDS: PREDNISONE 20MG TABLET PO SCH (08:26)
[2018-10-08] MEDS: BLOOD SUGAR DIAGNOSTIC STRIP TEST SCH ×2 (08:29→12:12)
[2018-10-08] MEDS: TIOTROPIUM ORI SCH (08:48)
[2018-10-08] MEDS: OLODATEROL ORI SCH (08:48)
[2018-10-08] MEDS: ALBUTEROL (0.083%) 2.5MG/3ML NEB HHN SCH ×2 (09:34→13:08)
[2018-10-08] MEDS ORDERED: ALBUTEROL (0.083%) 2.5MG/3ML NEB ONE (09:34)
[2018-10-08] MEDS ORDERED: PREDNISONE 20MG TABLET PO SCH ×2 (09:45→17:00)
== END 2018-10-08 14:00 | disposition home health service (06) | DRG 291 ==
LOC: ER 09:47 → 5EST 12:35 → CANRESERV 13:37 → ENRESERV 13:37 → SUPCPDRO 14:11
PROVIDERS: ADMIT Internal Medicine; ATTEND Internal Medicine
PROC: 5A09357 Assistance with Respiratory Ventilation, Less than 24 Consecutive Hours, Continuous Positive Airway Pressure (ICD-10-PCS; principal; 2018-10-02)
PROC: 5A09357 Assistance with Respiratory Ventilation, Less than 24 Consecutive Hours, Continuous Positive Airway Pressure (ICD-10-PCS; 2018-10-03)
PROC: 5A09357 Assistance with Respiratory Ventilation, Less than 24 Consecutive Hours, Continuous Positive Airway Pressure (ICD-10-PCS; 2018-10-07)
DX: I11.0 Hypertensive heart disease with heart failure (principal); J96.01 Acute respiratory failure with hypoxia; J96.02 Acute respiratory failure with hypercapnia; J44.1 Chronic obstructive pulmonary disease with (acute) exacerbation; I42.9 Cardiomyopathy, unspecified; I48.2 Chronic atrial fibrillation; H54.3 Unqualified visual loss, both eyes; E87.6 Hypokalemia; I50.9 Heart failure, unspecified; N28.9 Disorder of kidney and ureter, unspecified; T38.0X5A Adverse effect of glucocorticoids and synthetic analogues, initial encounter; E11.9 Type 2 diabetes mellitus without complications; E78.00 Pure hypercholesterolemia, unspecified; I25.10 Atherosclerotic heart disease of native coronary artery without angina pectoris; G51.0 Bell's palsy; K59.00 Constipation, unspecified; N40.0 Benign prostatic hyperplasia without lower urinary tract symptoms; Z79.4 Long term (current) use of insulin; Z82.49 Family history of ischemic heart disease and other diseases of the circulatory system; Z83.3 Family history of diabetes mellitus; Z85.038 Personal history of other malignant neoplasm of large intestine; Z85.46 Personal history of malignant neoplasm of prostate; Z87.891 Personal history of nicotine dependence; Z90.49 Acquired absence of other specified parts of digestive tract; Z90.79 Acquired absence of other genital organ(s); Z79.01 Long term (current) use of anticoagulants; Z79.899 Other long term (current) drug therapy; Y92.89 Other specified places as the place of occurrence of the external cause
CPT/HCPCS: 36415; 36600; 71045; 80048; 80061; 82375; 82550; 82553; 82805; 82962; 83036; 83880; 84484; 85379; 93005; 93306; 93970; 94640; 94660; 96365; 96375; 97110; 97116; 97162; 97166; 99291; J1815; J1940; J1956; J2920; J2930; J7512; J7611; J7620

== ENCOUNTER 2019-12-06 14:13 | Inpatient (IN) | payer MEDICARE, MEDICAID ==
[~2019-12-06] VITALS: Ht 172.7 cm; Wt 86.6 kg
[~2019-12-06 14:13] MED LIST changes: -DILT180C3 MT; +DILT180C87 MT
[2019-12-06 16:28] LABS: CLARITY URINE CLEAR (CLEAR); COLOR URINE YELLOW (YELLOW); KETONES URINE TRACE (NEGATIVE); LEUKOCYTE ESTERASE URINE NEGATIVE (NEGATIVE); NITRITE URINE NEGATIVE (NEGATIVE); OCCULT BLOOD URINE NEGATIVE (NEGATIVE); PROTEIN URINE 2+ (NEGATIVE); SPECIFIC GRAVITY URINE 1.027 (1.005-1.030)
[2019-12-06 16:37] LABS: HEMATOCRIT. 38.8 % (42.0-52.0); HEMOGLOBIN. 12.4 g/dL (14.0-18.0); MEAN CORPUSCULAR HEMOGLOBIN 25.9 pg (28.0-32.0); MEAN CORPUSCULAR VOLUME 80.9 fL (80.0-94.0); MEAN PLATELET VOLUME 7.8 fl (7.4-10.4); PLATELET 195 x1000/uL (130-400); RED CELL DISTRIBUTION WIDTH 19.9 % (11.6-14.6)
[2019-12-06 16:45] LABS: CHLORIDE 105 mEq/L (98-107)
[2019-12-06 16:48] LABS: INR 1.2; PROTHROMBIN TIME 12.7 sec (9.6-11.0)
[2019-12-06 16:56] LABS: PLATELET ESTIMATE NORMAL
[2019-12-06] MEDS ORDERED: NITROGLYCERIN OINT 1GM/INCH UDPKT TD NR (17:15)
[2019-12-06] MEDS ORDERED: IPRATROPIUM/ALBUTEROL 0.5-3(2.5)MG/3ML NEB NEB PRN (17:30)
[2019-12-06] MEDS ORDERED: ZOLPIDEM TARTRATE 5MG TABLET PO PRN (17:30)
[2019-12-06] MEDS ORDERED: CLONIDINE 0.1MG TABLET PO PRN (17:30)
[2019-12-06] MEDS ORDERED: ONDANSETRON HCL 4MG/2ML INJ IV PRN (17:30)
[2019-12-06] MEDS ORDERED: ACETAMINOPHEN 325MG TABLET PO PRN ×2 (17:30)
[2019-12-06] MEDS ORDERED: LORAZEPAM 2MG/ML CPJ IV PRN (17:30)
[2019-12-06] MEDS ORDERED: NITROGLYCERIN 0.4MG TABLET SL SL PRN (17:30)
[2019-12-06] MEDS ORDERED: DEXTROSE 50% WATER 50ML SYRINGE IV PRN (17:30)
[2019-12-06] MEDS ORDERED: GUAIFENESIN 200MG/10ML SUGAR FREE UDC PO PRN (17:30)
[2019-12-06] MEDS ORDERED: DOCUSATE SODIUM 100MG CAPSULE PO PRN (17:30)
[2019-12-06] MEDS ORDERED: MAGNESIUM/ALUMINUM HYDROXIDE/SIMETHICONE 30ML UDC PO PRN (17:30)
[2019-12-06] MEDS ORDERED: CEFTRIAXONE 1 G PREMIX 50 ML IV SCH ×2 (17:45→18:00)
[2019-12-06] MEDS ORDERED: TRAMADOL 50MG TABLET PO PRN (17:49)
[2019-12-06 18:11] LABS: T4 FREE 0.97 ng/dL (0.76-1.46)
[2019-12-06 18:24] LABS: VITAMIN B12 SERUM 227 pg/mL (211-911)
[2019-12-06 18:32] LABS: FOLIC ACID (FOLATE) SERUM > 20.00 ng/mL (>5.38)
[2019-12-06] MEDS ORDERED: AZITHROMYCIN 500 MG in DEXT 5% WATER 250 ML IV SCH (19:00)
[2019-12-06] MEDS: DILTIAZEM HCL 90MG TABLET PO SCH (19:01)
[2019-12-06] MEDS: INSULIN LISPRO 100 UNITS/ML SUBCUT SCH ×2 (19:48→22:28)
[2019-12-06] MEDS: LISINOPRIL 20MG TABLET PO SCH (22:27)
[2019-12-06] MEDS: FUROSEMIDE 40MG/4ML VIAL IVP SCH (22:27)
[2019-12-06] MEDS: BLOOD SUGAR DIAGNOSTIC STRIP TEST SCH (22:28)
[2019-12-06] MEDS: FAMOTIDINE 20MG TABLET PO SCH (22:28)
[2019-12-06] MEDS: ASCORBIC ACID 500 MG TABLET PO SCH (22:28)
[2019-12-06] MEDS: SPIRONOLACTONE 25MG TABLET PO SCH (22:41)
[2019-12-06 23:24] VITALS: BP 119/63
[2019-12-06 23:52] LABS: CREATINE KINASE MB FRACTION 5.8 ng/mL (0.5-3.6)
[2019-12-07] VITALS: BP 119/67
[2019-12-07 04:00] VITALS: BP 117/76
[2019-12-07] MEDS: DILTIAZEM HCL 90MG TABLET PO SCH ×5 (05:38→18:33)
[2019-12-07 06:40] LABS: BASOPHILS % 0.3 % (0.0-2.0); EOSINOPHILS % 0.4 % (0.0-5.0); HEMATOCRIT. 37.7 % (42.0-52.0); HEMOGLOBIN. 11.9 g/dL (14.0-18.0); LYMPHOCYTES % 10.2 % (20.0-50.0); MEAN CORPUSCULAR HEMOGLOBIN 25.9 pg (28.0-32.0); MEAN CORPUSCULAR VOLUME 82.2 fL (80.0-94.0); MONOCYTES % 8.8 % (2.0-8.0); NEUTROPHILS % 80.3 % (40.0-76.0); PLATELET 211 x1000/uL (130-400); RED BLOOD CELL COUNT 4.59 mill/uL (4.7-6.1); RED CELL DISTRIBUTION WIDTH 19.8 % (11.6-14.6)
[2019-12-07 06:59] LABS: CHLORIDE 105 mEq/L (98-107)
[2019-12-07 07:09] LABS: PHOSPHORUS 3.7 mg/dL (2.5-4.9)
[2019-12-07 07:11] LABS: CREATINE KINASE 239 IU/L (39-308)
[2019-12-07 07:14] LABS: CREATINE KINASE MB FRACTION 6.2 ng/mL (0.5-3.6)
[2019-12-07] MEDS: INSULIN LISPRO 100 UNITS/ML SUBCUT SCH ×4 (07:40→20:21)
[2019-12-07] MEDS: BLOOD SUGAR DIAGNOSTIC STRIP TEST SCH ×4 (07:42→20:21)
[2019-12-07] MEDS ORDERED: PNEUMOCOCCAL 23-VAL P-SAC VAC 0.5 ML IM ONE (08:00)
[2019-12-07 08:03] VITALS: BP 135/80
[2019-12-07] MEDS: FAMOTIDINE 20MG TABLET PO SCH ×3 (08:39→20:39)
[2019-12-07] MEDS: LISINOPRIL 20MG TABLET PO SCH ×3 (08:39→20:40)
[2019-12-07] MEDS: ZINC SULFATE 220 MG ( 50 ) CAPSULE PO SCH (08:39)
[2019-12-07] MEDS: ASCORBIC ACID 500 MG TABLET PO SCH ×3 (08:40→20:39)
[2019-12-07] MEDS: SPIRONOLACTONE 25MG TABLET PO SCH ×3 (08:40→20:39)
[2019-12-07] MEDS: FUROSEMIDE 40MG/4ML VIAL IVP SCH ×2 (08:40→20:13)
[2019-12-07] MEDS: ASPIRIN 325MG EC TABLET PO SCH (08:43)
[2019-12-07 11:48] VITALS: BP 145/82
[2019-12-07 16:00] VITALS: BP 153/80
[2019-12-07] MEDS: RIVAROXABAN 10 MG TABLET PO SCH (16:57)
[2019-12-07] MEDS ORDERED: CEFTRIAXONE 1,000 MG in DEXTROSE 5% WATER 50 ML IV SCH (20:00)
[2019-12-07] MEDS ORDERED: HALOPERIDOL LACTATE 5MG/ML VIAL IM PRN (20:30)
[2019-12-07] MEDS ORDERED: AZITHROMYCIN 500 MG in DEXT 5% WATER 250 ML IV SCH (21:00)
[2019-12-08] VITALS: BP 139/82
[2019-12-08 04:00] VITALS: BP 151/100
[2019-12-08] MEDS: DILTIAZEM HCL 90MG TABLET PO SCH ×5 (05:16→23:27)
[2019-12-08] MEDS: BLOOD SUGAR DIAGNOSTIC STRIP TEST SCH ×4 (06:22→20:55)
[2019-12-08] MEDS: INSULIN LISPRO 100 UNITS/ML SUBCUT SCH ×4 (06:44→22:20)
[2019-12-08 08:00] VITALS: BP 130/78
[2019-12-08] MEDS: FUROSEMIDE 40MG/4ML VIAL IVP SCH ×2 (09:00→20:22)
[2019-12-08] MEDS: LISINOPRIL 20MG TABLET PO SCH ×2 (09:26→20:55)
[2019-12-08] MEDS: ASCORBIC ACID 500 MG TABLET PO SCH ×2 (09:26→20:22)
[2019-12-08] MEDS: ZINC SULFATE 220 MG ( 50 ) CAPSULE PO SCH ×2 (09:26→09:28)
[2019-12-08] MEDS: FAMOTIDINE 20MG TABLET PO SCH ×2 (09:26→20:24)
[2019-12-08] MEDS: SPIRONOLACTONE 25MG TABLET PO SCH ×2 (09:29→20:22)
[2019-12-08] MEDS: ASPIRIN 325MG EC TABLET PO SCH (09:30)
[2019-12-08 12:00] VITALS: BP 121/70
[2019-12-08 16:00] VITALS: BP 104/64
[2019-12-08] MEDS: RIVAROXABAN 10 MG TABLET PO SCH (18:25)
[2019-12-08 20:05] VITALS: BP 135/79
[2019-12-09] VITALS: BP 114/75
[2019-12-09 04:23] VITALS: BP 147/82
[2019-12-09] MEDS: DILTIAZEM HCL 90MG TABLET PO SCH ×3 (06:11→17:49)
[2019-12-09] MEDS: BLOOD SUGAR DIAGNOSTIC STRIP TEST SCH ×4 (06:22→21:14)
[2019-12-09 08:00] VITALS: BP 129/84
[2019-12-09] MEDS: FUROSEMIDE 40MG/4ML VIAL IVP SCH ×2 (09:15→20:43)
[2019-12-09] MEDS: LISINOPRIL 20MG TABLET PO SCH ×2 (09:16→20:45)
[2019-12-09] MEDS: ASCORBIC ACID 500 MG TABLET PO SCH ×2 (09:16→20:43)
[2019-12-09] MEDS: FAMOTIDINE 20MG TABLET PO SCH ×2 (09:16→20:43)
[2019-12-09] MEDS: ASPIRIN 325MG EC TABLET PO SCH (09:16)
[2019-12-09] MEDS: SPIRONOLACTONE 25MG TABLET PO SCH ×2 (09:17→20:45)
[2019-12-09 12:00] VITALS: BP 138/85
[2019-12-09] MEDS: INSULIN LISPRO 100 UNITS/ML SUBCUT SCH ×4 (12:53→21:14)
[2019-12-09 16:00] VITALS: BP 113/66
[2019-12-09] MEDS ORDERED: RIVAROXABAN 20 MG TABLET PO SCH (17:00)
[2019-12-09 20:00] VITALS: BP 136/80
[2019-12-10] VITALS: BP 149/66
[2019-12-10] MEDS: DILTIAZEM HCL 90MG TABLET PO SCH ×3 (00:06→14:07)
[2019-12-10 04:00] VITALS: BP 140/70
[2019-12-10] MEDS: BLOOD SUGAR DIAGNOSTIC STRIP TEST SCH ×2 (06:36→12:10)
[2019-12-10] MEDS: INSULIN LISPRO 100 UNITS/ML SUBCUT SCH ×2 (06:40→14:08)
[2019-12-10 07:56] VITALS: BP 123/69
[2019-12-10] MEDS: ASPIRIN 325MG EC TABLET PO SCH (09:23)
[2019-12-10] MEDS: FUROSEMIDE 40MG/4ML VIAL IVP SCH (09:23)
[2019-12-10] MEDS: ZINC SULFATE 220 MG ( 50 ) CAPSULE PO SCH (09:23)
[2019-12-10] MEDS: ASCORBIC ACID 500 MG TABLET PO SCH (09:23)
[2019-12-10] MEDS: SPIRONOLACTONE 25MG TABLET PO SCH (09:23)
[2019-12-10] MEDS: FAMOTIDINE 20MG TABLET PO SCH (09:24)
[2019-12-10] MEDS: LISINOPRIL 20MG TABLET PO SCH (09:24)
[2019-12-10 12:00] VITALS: BP 139/58
[2019-12-10 14:47] VITALS: BP 128/76
[2019-12-10 15:04] VITALS: BP 128/76
[2019-12-11 06:11] LABS: BARBITURATE SCREEN Negative ug/mL (Cutoff:0.1); BENZODIAZEPINE SCREEN Negative ng/mL (Cutoff:20); OPIATES SCREEN Negative ng/mL (Cutoff:5); PHENCYCLIDINE SCREEN Negative ng/mL (Cutoff:8)
== END 2019-12-10 16:20 | disposition home health service (06) | DRG 871 ==
LOC: ER 14:13 → 8WST 17:05 → EDBEDREQ 17:07 → ENRESERV 21:57
PROVIDERS: ADMIT Internal Medicine; ATTEND Internal Medicine
PROC: 05H533Z Insertion of Infusion Device into Right Subclavian Vein, Percutaneous Approach (ICD-10-PCS; principal; 2019-12-08)
PROC: B546ZZA Ultrasonography of Right Subclavian Vein, Guidance (ICD-10-PCS; 2019-12-08)
DX: A41.9 Sepsis, unspecified organism (principal); I21.4 Non-ST elevation (NSTEMI) myocardial infarction; I50.43 Acute on chronic combined systolic (congestive) and diastolic (congestive) heart failure; J96.01 Acute respiratory failure with hypoxia; J18.9 Pneumonia, unspecified organism; E87.2 Acidosis; I16.1 Hypertensive emergency; I42.9 Cardiomyopathy, unspecified; D63.8 Anemia in other chronic diseases classified elsewhere; E11.9 Type 2 diabetes mellitus without complications; E78.5 Hyperlipidemia, unspecified; I11.0 Hypertensive heart disease with heart failure; I27.20 Pulmonary hypertension, unspecified; R65.20 Severe sepsis without septic shock; J44.9 Chronic obstructive pulmonary disease, unspecified; I48.91 Unspecified atrial fibrillation; E78.00 Pure hypercholesterolemia, unspecified; I36.1 Nonrheumatic tricuspid (valve) insufficiency; Z79.01 Long term (current) use of anticoagulants; Z79.4 Long term (current) use of insulin; Z79.84 Long term (current) use of oral hypoglycemic drugs; Z79.899 Other long term (current) drug therapy; H54.8 Legal blindness, as defined in USA
CPT/HCPCS: 36415; 71045; 71275; 76937; 80048; 80053; 80061; 80307; 81003; 82550; 82553; 82607; 82746; 82962; 83036; 83540; 83550; 83605; 83735; 83880; 84100; 84145; 84439; 84443; 84484; 85025; 85379; 90732; 93005; 93306; 93970; 97116; 97162; 97166; 99285; C1725; J0456; J0696; J1630; J1815; J1940; J7060